=== PATIENT | male | born 1995 | race Caucasian/White ===

== ENCOUNTER 2017-12-21 14:23 | Inpatient (IN) | payer OTHER ==
[~2017-12-21] VITALS: Ht 172.7 cm; Wt 68.0 kg
[2017-12-22 14:30] VITALS: BP 138/65
[2017-12-22] MEDS ORDERED: MAGNESIUM HYDROXIDE 30 ML LIQUID UDC PO PRN (14:30)
[2017-12-22] MEDS ORDERED: ONDANSETRON ODT 4 MG TAB.RAPDIS SL PRN (14:30)
[2017-12-22] MEDS ORDERED: LORAZEPAM 2 MG/1 ML VIAL IM PRN (14:30)
[2017-12-22] MEDS ORDERED: ONDANSETRON 4 MG/2 ML VIAL IM PRN (14:30)
[2017-12-22] MEDS ORDERED: LORAZEPAM 1 MG TABLET PO PRN ×2 (14:30)
[2017-12-22] MEDS ORDERED: DICYCLOMINE HCL 20 MG TABLET PO PRN (14:30)
[2017-12-22] MEDS ORDERED: THIAMINE HCL 200 MG/2 ML VIAL IM ONE (14:30)
[2017-12-22] MEDS ORDERED: NICOTINE 14 MG/24HR PATCH TD PRN (14:30)
[2017-12-22] MEDS ORDERED: LOPERAMIDE HCL 2 MG CAPSULE PO PRN ×2 (14:30)
[2017-12-22] MEDS ORDERED: MAG HYDROX/AL HYDROX/SIMETH 30 ML LIQUID UDC PO PRN (14:30)
[2017-12-22] MEDS ORDERED: MIRALAX 17 GM POWD.PACK PO PRN (14:30)
[2017-12-22] MEDS ORDERED: NICOTINE POLACRILEX 4 MG GUM-PK OF TEN BC PRN (14:30)
[2017-12-22] MEDS ORDERED: IBUPROFEN 400 MG TABLET PO PRN (14:30)
[2017-12-22] MEDS ORDERED: ACETAMINOPHEN 325 MG TABLET PO PRN (14:30)
--- NOTE | 2017-12-22 14:30 | NUR ---
INTAKE ASSESSMENT Received patient in intake. He is AOX4, stable, and ambulatory. Vital signs WNL. Patient reports allergic to sulfa. Patient has seizure history last seizure was in March 2017. Patient did not bring any medications with him from home. Explained unit protocols and patient verbalized understanding. Will admit patient upon admission to third floor.
--- NOTE | 2017-12-22 15:00 | NUR ---
ADMISSION NOTE STATUS-FULL CODE ALLERGY-SULFA HEIGHT-5'8" WEIGHT-150IBS VITAL SIGNS-BP: 138/65, P: 80, R: 16, O2: 96%, T: 98.4, PA: 0/10 PCP-NONE Patient is a 22 year old male admitted on 12/22/17 for ETOH dependence, arrived on the unit at 1500. Patient able to provide UDS during intake. Skin and body check completed. Pt is full code, Regular diet and on fall/seizure precautions. Patient reports PMH of anxiety,heredity spherocytosis, seizure last seizure was in March 2017. Pt refuses flu/pneumonia vaccine. Patient reports smokes 1 pack of cigarettes a day. Patient did not bring any medication with him. Patient reports first using alcohol at age [age] years old, but last 2 years drinking daily 12 pack of beer, last used was on 12/21/17 12 pack beer, Cocaine last 2 years 0.25 GM daily via inhalation last used was 0.25Gm on 12/21/17. Patient also reported using Xanax last 2 years on and off occasionally 0.25 mg to 2 mg last used was 2mg prior to admission 12/22/17. Patient reports achieved 2 weeks of sobriety 2 years ago. Patient reports this is his first time in treatment/detox. Patient reports family history of ETOH abuse and heart disease. Upon assessment, pt is AAOx4 and presents with anxiety, agitation,fatigue. Respirations even and unlabored. Denies SOB or chest pain. Bowel sounds active x 4, abdomen soft. PERRLA. Skin intact, no open wounds noted. Pt denies SI/HI at this time. Patient denies any history of SI/HI. Pt oriented to room and encouraged to notify staff with any concerns. Safety measures in place. Call light within reach, side rails up x 2, bed locked and in low position. Will continue to monitor.
[2017-12-22 15:43] LABS: *AMPHETAMINE, URINE NEGATIVE (NEGATIVE); *BARBITURATE, URINE NEGATIVE (NEGATIVE); *CANNABINOID, URINE POSITIVE (NEGATIVE); *COCCAINE, URINE POSITIVE (NEGATIVE); *OPIATE, URINE NEGATIVE (NEGATIVE); *PHENCYCLIDINE SCREEN,URINE NEGATIVE (NEGATIVE)
[2017-12-22 16:00] VITALS: BP 132/74
[2017-12-22] MEDS: LORAZEPAM 1 MG TABLET PO SCH ×2 (16:33→20:16)
--- NOTE | 2017-12-22 19:08 | NUR ---
END OF SHIFT NOTE Patient is alert oriented x4. 22 year old male admitted for ETOH dependence. Patient has PMH of Anxiety, seizure, and hereditary spherocytosis. Patient cont on 5 days Ativan taper tolerating well. Medications were effective in reducing withdrawal symptoms. Patient did not receive any PRN during shift. Skin intact warm and dry to touch. Last CIWA score was 10. Patient remained compliant with treatment plan and medication regime. Encourage Po fluids as tolerated. All safety measures in place, Call light within reach. Patient endorsed to night nurse in stable condition.
--- NOTE | 2017-12-22 19:10 | NUR ---
Start of Shift Patient Received. Patient is in his room, awake, alert and verbally responsive. Breathing even and non labored. Patient is a 22 year old male admitted today for ETOH Dependence. Patient was started on a 5 day Ativan taper with CIWA noted to be 10. Per endorsement, labs to be rendered. All needs attended to promptly. Will continue plan of care as ordered.
[2017-12-22 20:14] VITALS: BP 148/71
[2017-12-22] MEDS: diphenhydrAMINE 50 MG CAPSULE PO PRN (20:16)
--- NOTE | 2017-12-22 20:20 | NUR ---
PRN Medication Administration Patient is noted verbalizing inability of falling asleep and staying asleep. PRN Benadryl administered with routine medications. Will continue to monitor.
--- NOTE | 2017-12-22 21:20 | NUR ---
PRN Medication Reassessment Patient is noted in bed sleeping. Breathing even and non labored. No signs of restlessness or discomfort noted. PRN Benadryl noted to be effective. Will continue to monitor.
[2017-12-22 23:19] LABS: BASOPHILS # (AUTO) 0.1 K/uL (0.0-8.0); BASOPHILS % (AUTO) 0.8 % (0.0-2.0); EOSINOPHILS # (AUTO) 0.1 K/uL (0.0-0.7); HEMATOCRIT 45.6 % (36.7-47.1); LYMPHOCYTES # (AUTO) 1.5 K/uL (20.0-40.0); LYMPHOCYTES % (AUTO) 18.1 % (20.5-51.5); MEAN CORPUSCULAR VOLUME 96.9 fL (73.0-96.2); MONOCYTES # (AUTO) 0.5 K/uL (2.0-10.0); MONOCYTES % (AUTO) 6.2 % (0.0-11.0); NEUTROPHILS # (AUTO) 5.9 K/uL (1.8-8.9); NEUTROPHILS % (AUTO) 73.9 % (38.5-71.5); PLATELET COUNT (AUTO) 219 K/uL (152-348)
[2017-12-22 23:28] LABS: ETHANOL < 3 MG/DL (0-0)
[2017-12-22 23:29] LABS: ALANINE AMINOTRANSFERASE 35 U/L (16-63); ALKALINE PHOSPHATASE 65 U/L (50-136); AMYLASE 54 U/L (25-115); ASPARTATE AMINOTRANSFERASE 27 U/L (15-37); BILIRUBIN,TOTAL 2.6 mg/dL (0.2-1.0); CARBON DIOXIDE 28 mmol/L (21-32); CHLORIDE 99 mmol/L (98-107); CREATININE 1.1 mg/dL (0.6-1.3); GLUCOSE 122 mg/dL (74-106); MAGNESIUM 2.1 mg/dL (1.8-2.4); POTASSIUM 3.8 mmol/L (3.5-5.1); TOTAL PROTEIN, SERUM 8.2 g/dL (6.4-8.2); UREA NITROGEN, BLOOD 14 mg/dL (7-18)
[2017-12-23] VITALS (7 sets, daily range): BP systolic 112–151; BP diastolic 55–93
[2017-12-23 00:35] LABS: MEAN CORPUSCULAR HEMOGLOBIN 34.7 uug (23.8-33.4)
[2017-12-23 00:36] LABS: MEAN CORPUSCULAR HGB CONC 35 g/dL (32.5-36.3)
--- NOTE | 2017-12-23 07:06 | NUR ---
End of Shift Patient is in bed sleeping. Breathing even and non labored. No signs of restlessness or discomfort noted. Patient is a 22 year old male admitted for ETOH Dependence and continues on a 5 day Ativan taper. Patient received a PRN Benadryl with medication noted to be effective. Last noted CIWA 10. All needs attended to promptly. Will endorse to continue plan of care as ordered.
--- NOTE | 2017-12-23 07:34 | NUR ---
BEGINNING OF SHIFT Patient endorsement report received from table games shift manager nurse, all pertinent information discussed. Patient is a 22 year old male with admitting Dx: ETOH dependence. with substance use of: Cocaine, and xanax. Patient currently with ongoing 5 day Ativan taper as ordered, and is scheduled to begin day 1 of taper. Per table games shift manager patient with last ciwa score of: 10, received PRN: Benadryl. Slept for 8 hours. Fall and seizure precautions observed at all times. Patient received awake, alert and oriented x4, educated regarding plan of care for the day, will continue to monitor closely. safety measures in place.
[2017-12-23] MEDS: FOLIC ACID 1 MG TABLET PO SCH (08:55)
[2017-12-23] MEDS: THIAMINE HCL 100 MG TABLET PO SCH (08:55)
[2017-12-23] MEDS: MULTIVITAMINS,THERAPEUTIC TABLET PO SCH (08:55)
[2017-12-23] MEDS: LORAZEPAM 1 MG TABLET PO SCH ×3 (08:56→21:30)
[2017-12-23] MEDS ORDERED: TUBERCULIN,PURIF.PROT.DERIV. 5 TU/0.1 ML TEST ID ONE (09:00)
--- NOTE | 2017-12-23 11:50 | NUR ---
Therapist prompted client about group times. Client stated he will attend all groups today.
--- NOTE | 2017-12-23 19:00 | NUR ---
END OF SHIFT Patient alert and oriented x4, compliant with plan of care. Patient with admitting Dx: etoh withdrawal. Continues under very close observation for any s/sx of withdrawal. Continues on 5 day Ativan taper as ordered, currently on day 1 of taper. Vital signs monitored closely during shift. During shift patient presented with: tremors, sweats, anxiety, agitation, clammy skin. Also noted with worried facial expression and avoidant eye contact. Patient noted with irritable and anxious facial expression. During shift patient encouraged to develop coping skills and utilization of non pharmacological interventions provided. Encouraged to participate in therapy session. Encouraged diversional activities to alleviate anxiety. 0900 CIWA: 8; 1300 CIWA: 7; 1700 CIWA: 7. Denies any SI/HI. Noted with good appetite during shift, encouraged adequate PO fluid intake as tolerated. All needs met and rendered, call light kept within reach. Fall and seizure precautions observed and in place at all times. Patient endorsed to weight shifter nurse, all pertinent information discussed.
--- NOTE | 2017-12-23 20:00 | NUR ---
Start of Shift Notes Received 22 y/o male alex standing inside his room, px made no complaints, just reported that his anxiety is mild. Px is admitted on 12/22/2017 for ETOH and cocaine dependence. Px is Full Code, on regular diet and px has allergies on Sulfa drugs. Px reported PMHx of anxiety and hereditary spherocytosis. Px is placed on 5 day Ativan taper. Px is on seizure and fall precautions. Bed on lowest position, side rails up 2x, and call light within reach.
[2017-12-23] MEDS: diphenhydrAMINE 50 MG CAPSULE PO PRN (21:30)
--- NOTE | 2017-12-23 21:30 | NUR ---
PRN Benadryl Px requested for Benadryl to help him sleep tonight. Benadryl 50 mg/cap, 1 cap given. We'll continue to monitor.
[2017-12-24] VITALS: BP 128/74
[2017-12-24 04:00] VITALS: BP 125/71
--- NOTE | 2017-12-24 04:00 | NUR ---
CIWA deferred CIWA deferred at 0000 and 0400 due to the px is asleep, to assess if the px is awake per doctors order. We'll continue to monitor.
--- NOTE | 2017-12-24 07:30 | NUR ---
End of Shift Notes During the shift, px didn't complained of anything just requested for Benadryl to help him sleep. Benadryl 50 mg/cap, 1 cap given PO as PRN med and it was effective. Oral intake of 1 L, voided 2x, BM 1x. Slept for 6 hours. We'll continue to monitor. Endorsed to AM shift nurse.
[2017-12-24 07:42] LABS: BASOPHILS % (AUTO) 0.3 % (0.0-2.0); EOSINOPHILS # (AUTO) 0.1 K/uL (0.0-0.7); EOSINOPHILS % (AUTO) 1.1 % (0.0-7.0); HEMATOCRIT 46.1 % (36.7-47.1); HEMOGLOBIN 16.8 g/dL (12.5-16.3); LYMPHOCYTES # (AUTO) 2.1 K/uL (20.0-40.0); LYMPHOCYTES % (AUTO) 30.4 % (20.5-51.5); MEAN CORPUSCULAR HEMOGLOBIN 35.2 uug (23.8-33.4); MEAN CORPUSCULAR HGB CONC 36 g/dL (32.5-36.3); MEAN CORPUSCULAR VOLUME 96.6 fL (73.0-96.2); MONOCYTES # (AUTO) 0.5 K/uL (2.0-10.0); MONOCYTES % (AUTO) 7.4 % (0.0-11.0); NEUTROPHILS # (AUTO) 4.2 K/uL (1.8-8.9); NEUTROPHILS % (AUTO) 60.8 % (38.5-71.5); PLATELET COUNT (AUTO) 200 K/uL (152-348); RED BLOOD CELL COUNT(AUTO) 4.78 MIL/uL (4.06-5.63)
[2017-12-24 08:00] VITALS: BP 111/79
[2017-12-24] MEDS: LORAZEPAM 1 MG TABLET PO SCH ×2 (09:02→15:01)
[2017-12-24] MEDS: FOLIC ACID 1 MG TABLET PO SCH (09:03)
[2017-12-24] MEDS: THIAMINE HCL 100 MG TABLET PO SCH (09:03)
[2017-12-24] MEDS: MULTIVITAMINS,THERAPEUTIC TABLET PO SCH (09:03)
--- NOTE | 2017-12-24 09:36 | NUR ---
START OF SHIFT Received report from retail shift supervisor nurse. Patient is 22 year old male admitted for medically supervised withdrawal from alcohol. Patient is full code with allergy to sulfa. On assessment this AM: CIWA: 3. Denies SOB, chest pain. Patient's vitals signs: WNL. Patient reports anxiety and mild headache. Compliant with AM meds. Offered prn but patient declined at this time. No PRN given. Patient has steady gait. Encouraged to attend group meetings today. Will continue to monitor patient.
[2017-12-24 09:38] LABS: BILIRUBIN,DIRECT 0.3 mg/dL (0.0-0.2); BILIRUBIN,TOTAL 2.5 mg/dL (0.2-1.0); CREATININE 1.1 mg/dL (0.6-1.3); MAGNESIUM 2.6 mg/dL (1.8-2.4)
[2017-12-24 12:00] VITALS: BP 128/77
[2017-12-24 12:09] LABS: HEPATITIS B SURFACE AG Negative (Negative)
--- NOTE | 2017-12-24 13:44 | NUR ---
Therapist prompted client to come to group today. Client agreed to attempt to make it.
[2017-12-24 16:00] VITALS: BP 121/72
--- NOTE | 2017-12-24 19:27 | NUR ---
END OF SHIFT Patient is 22 year old male admitted for medically supervised withdrawal from alcohol. Patient is full code with allergy to sulfa. Most recent CIWA 6. Patient noted to have tremors and anxiety. Patient appears guarded with poor eye contact. Patient minimizes his anxiety and tremors and states he has had his tremors for a long time. Attended group activity this afternoon night shift supervisornight nurse will continue to monitor patient.
[2017-12-24 20:00] VITALS: BP 140/83
--- NOTE | 2017-12-24 20:00 | NUR ---
Start of Shift Notes Received awake standing inside his room. Room appears unkempt, clothes on the floor and some garbage. Px has flushed face and appears anxious, fidgety and restless. Bilateral hand tremors noted. Px asked for a pass to smoke in the patio. Px is on seizure and fall precautions. Bed on lowest position, side rails up 2x, and call light within reach. We'll continue to monitor.
[2017-12-24] MEDS: CLONIDINE HCL 0.1 MG TABLET PO PRN (20:59)
[2017-12-24] MEDS: diphenhydrAMINE 50 MG CAPSULE PO PRN (20:59)
--- NOTE | 2017-12-24 20:59 | NUR ---
PRN meds Px appears very anxious and asked for Benadryl to help him sleep tonight. At 2058, Clonidine 0.1 mg/tab, 1 tab given PO as PRN med and Benadryl 50 mg/cap, 1 cap given PO as PRN med. We'll continue to monitor.
[2017-12-24] MEDS ORDERED: LORAZEPAM 1 MG TABLET PO SCH (21:00)
[2017-12-25] VITALS (8 sets, daily range): BP systolic 104–136; BP diastolic 62–85
--- NOTE | 2017-12-25 04:00 | NUR ---
CIWA deferred CIWA deferred due to px is asleep, to assess if the px is awake per doctor's order. We'll continue to monitor.
[2017-12-25] MEDS: CLONIDINE HCL 0.1 MG TABLET PO PRN ×2 (05:11→19:59)
--- NOTE | 2017-12-25 05:11 | NUR ---
PRN Clonidine Px woke up before 0500 and verbalized "I got broken hours of sleep, I was not like this for the past nights. Can I go smoke?" CIWA 12 at this moment. Clonidine 0.1 mg/tab, 1 tab given PO as PRN med for anxiety. BP= 136/70. We'll continue to monitor.
--- NOTE | 2017-12-25 07:14 | NUR ---
End of Shift Notes Pxs CIWA improved from start of shift CIWA 14 to CIWA 11 at 0000. PRN meds Clonidine 0.1 mg was effective to decrease pxs anxiety. PRN Benadryl 50 mg was not so effective due to the verbalization of px that he had broken hours of sleep last night. CIWA was 12 at 0500. At 0511, another Clonidine 0.1 mg given PO with BP= 136/70. Px had oral intake of 1 L, voided 2x, No BM. Px slept for 5 hours. At 0630, px was asleep on bed. Px is on seizure and fall precautions. Bed on lowest position, side rails up 2x, and call light within reach. Px endorsed to AM shift nurse.
--- NOTE | 2017-12-25 07:30 | NUR ---
START OF SHIFT Pt 22 y/o male admitted for medically supervised withdrawal. Pt received in room on bed with eyes closed resting, but easily arousable to name. Pt alert and oriented to name, place, and time. Perrla. Skin warm and moist to touch. Respirations even and unlabored. Bilateral hand tremors noted. Clothes scattered on the floor in room. Pt appears disheveled. Last reported ciwa=12 @ 0400. It was reported that pt slept for 5 hours last night. Bed on lowest position with side rails x2 up for safety. Call light within reach.
[2017-12-25] MEDS: THIAMINE HCL 100 MG TABLET PO SCH (09:52)
[2017-12-25] MEDS: LORAZEPAM 1 MG TABLET PO SCH ×2 (09:52→21:42)
[2017-12-25] MEDS: MULTIVITAMINS,THERAPEUTIC TABLET PO SCH (09:52)
[2017-12-25] MEDS: FOLIC ACID 1 MG TABLET PO SCH (09:52)
--- NOTE | 2017-12-25 18:59 | NUR ---
END OF SHIFT Pt 22 y/o male admitted for medically supervised withdrawal. Pt appears disheveled. Pt with clothes scattered throughout the floor noted. Pt alert and oriented to name, place, and time. Perrla. Skin warm and moist to touch. Respirations even and unlabored. Bilateral hand tremors noted. CIWA = 9@0800,9@1200, 9@1600. Pt observed mostly in room throughout the morning. Pt attended group activity. Pt was seen by MD today. Pt medication compliant and tolerated well. No ASE noted. Pt is on a 5 day ativan taper is on day 4. Bed on lowest position with side rails x2 up for safety. Call light within reach.
--- NOTE | 2017-12-25 19:45 | NUR ---
Start of Shift Notes Received px awake standing inside his room. Unfolded clothes noticed on top of cabinet and chair. Px appears worried. Px verbalized his anxiety is 4/10 and complained about his bilateral tremors. Px stated "I want to take my Ativan later at night not earlier and if I can have Benadryl too". Px was advised to call anytime if he needs anything. We'll continue to monitor.
[2017-12-25] MEDS: diphenhydrAMINE 50 MG CAPSULE PO PRN (21:42)
--- NOTE | 2017-12-25 21:42 | NUR ---
PRN Meds At 1958, Clonidine 0.1 mg/tab, 1 tab given PO as PRN med for anxiety, BP= 136/85 mmHg. At 2141, Benadryl 50 mg/cap, 1 cap given PO to help px sleep. We'll continue to monitor.
--- NOTE | 2017-12-25 23:00 | NUR ---
Reassessment of anxiety and tremors Px's anxiety and tremors improved after an hour of administration of PRN Clonidine and Ativan 1 mg PO as standing order. CIWA 8. We'll continue to monitor.
[2017-12-26] VITALS: BP 128/83
[2017-12-26 04:00] VITALS: BP 125/79
--- NOTE | 2017-12-26 04:00 | NUR ---
CIWA deferred CIWA deferred at 0000 and 0400 due to the px is asleep, to assess if the px is awake per doctor's order. We'll continue to monitor.
--- NOTE | 2017-12-26 07:24 | NUR ---
End of Shift Notes During the shift, At 1958, Clonidine 0.1 mg/tab, 1 tab given PO as PRN med for anxiety, it was effective. At 2141, Benadryl 50 mg/cap, 1 cap given PO as PRN med, it was effective. Px slept for 6.5 hours. Pxs oral intake is 1 L, voided 3x, No BM. Last CIWA 8. At 0630, px left sleeping on bed. We'll continue to monitor. Px endorsed to AM shift nurse.
--- NOTE | 2017-12-26 07:30 | NUR ---
START OF SHIFT Pt 22 y/o male admitted for medically supervised withdrawal. Pt received in room on bed with eyes closed resting, but easily arousable to name. Pt alert and oriented to name, place, and time. Perrla. Skin warm and moist to touch. Respirations even and unlabored. Bilateral hand tremors noted. Pt appears disheveled. Open empty bottles of drinks noted scattered throughout bed side shelf. Pt is on a 5 day ativan taper and is on day 5. Last reported ciwa=8 @ 0400. It was reported that pt slept for 6 hours last night. Bed on lowest position with side rails x2 up for safety. Call light within reach.
[2017-12-26] MEDS: FOLIC ACID 1 MG TABLET PO SCH (08:26)
[2017-12-26] MEDS: MULTIVITAMINS,THERAPEUTIC TABLET PO SCH (08:26)
[2017-12-26] MEDS: THIAMINE HCL 100 MG TABLET PO SCH (08:26)
[2017-12-26 08:28] VITALS: BP 111/65
[2017-12-26] MEDS ORDERED: LORAZEPAM 1 MG TABLET PO SCH (09:00)
--- NOTE | 2017-12-26 10:36 | NUR ---
THerapist prompted client to come to groups. Client shall consider this.
[2017-12-26] MEDS ORDERED: HYDROXYZINE PAMOATE 25 MG CAPSULE PO PRN (11:30)
--- NOTE | 2017-12-26 12:07 | NUR ---
PRN Pt restless, not able to sit still , and with pressured speech noted. Vistaril po prn per MD order given and tolerated well.
[2017-12-26 12:37] VITALS: BP 124/62
[2017-12-26] MEDS ORDERED: GABAPENTIN 100 MG CAPSULE PO SCH (13:00)
--- NOTE | 2017-12-26 13:07 | NUR ---
CIERRA HERNANDEZ Pt observed in recreational room sitting on couch.
[2017-12-26 16:00] VITALS: BP 136/75
--- NOTE | 2017-12-26 18:35 | NUR ---
END OF SHIFT Pt 22 y/o male admitted for medically supervised withdrawal. Pt appears disheveled with hair uncombed. Pt with clothes scattered throughout the floor. Pt alert and oriented to name, place, and time. Perrla. Skin warm and moist to touch. Respirations even and unlabored. Bilateral hand tremors noted. CIWA = 8@0800,8@1200,and 8@1600. Pt observed mostly in dining room throughout the morning. Pt attended group activity. Pt was seen by MD today. Pt medication compliant and tolerated well. No ASE noted. Pt is on a 5 day ativan taper is on day 5. Bed on lowest position with side rails x2 up for safety. Call light within reach.
--- NOTE | 2017-12-26 19:30 | NUR ---
Start of Shift Notes Received awake standing in his room. Dirty clothes noted on floor and chair. Px stated that his anxiety is mild and he is ready to be D/C tomorrow 12/27/2017. VS as follows BP= 135/79, MD= 75, RR=18, T= 97.7, O2sat= 87%. We'll continue to monitor.
[2017-12-26 20:00] VITALS: BP 135/79
[2017-12-26] MEDS ORDERED: FOLI1TAB16 PO (20:26)
[2017-12-26] MEDS ORDERED: HYDR-3895 PO (20:26)
[2017-12-26] MEDS ORDERED: GABA-532 PO (20:26)
[2017-12-26] MEDS ORDERED: CLON0.1T14 PO (20:26)
[2017-12-26] MEDS ORDERED: NICO4GUM38 BC (20:26)
[2017-12-26] MEDS ORDERED: DIPH50CA37 PO (20:28)
[2017-12-26] MEDS: GABAPENTIN 100 MG CAPSULE PO SCH (21:00)
[2017-12-26] MEDS: diphenhydrAMINE 50 MG CAPSULE PO PRN (22:12)
--- NOTE | 2017-12-26 22:12 | NUR ---
PRN Benadryl Px asked for Benadryl to help him sleep. Benadryl 50 mg/cap, 1 cap given PO as PRN med. We'll continue to monitor.
[2017-12-27] VITALS: BP 129/71
[2017-12-27 04:00] VITALS: BP 131/73
--- NOTE | 2017-12-27 07:14 | NUR ---
End of Shift Notes Px is to be D/C today, 12/27/2017. Benadryl 50 mg/cap, 1 cap given PO as PRN med to help px sleep through the night and it was effective. Px slept for 6 hours. Px oral intake 1000 ml, voided 2x, No BM. Left asleep on bed in left side lying position. Last CIWA 6. Bed on lowest position, side rails up 2x, and call light within reach. We'll continue to monitor. Endorse to AM shift nurse.
[2017-12-27 08:00] VITALS: BP 117/69
--- NOTE | 2017-12-27 08:00 | NUR ---
START OF SHIFT RECEIVED PT IN ROOM, PT STATES HE IS GETTING READY FOR DISCHARGE. PT REPORTS HAVING ANXIETY ABOUT LEAVING DETOX. PT IS TO BE DISCHARGED TODAY. ALL SAFETY MEASURES IN PLACE. WILL CONTINUE TO MONITOR UNTIL DISCHARGE.
[2017-12-27] MEDS: MULTIVITAMINS,THERAPEUTIC TABLET PO SCH (08:26)
[2017-12-27] MEDS: FOLIC ACID 1 MG TABLET PO SCH (08:27)
[2017-12-27] MEDS: THIAMINE HCL 100 MG TABLET PO SCH (08:27)
[2017-12-27] MEDS: GABAPENTIN 100 MG CAPSULE PO SCH (08:27)
--- NOTE | 2017-12-27 09:51 | NUR ---
DISCHARGE NOTE PT IS IN STABLE CONDITION AND IS A/OX4, RESPIRATIONS EVEN AND UNLABORED. D/C INSTRUCTIONS GIVEN AND PT VERBALIZED UNDERSTANDING. D/C PAPERWORK DATED, SIGNED AND COPIED. PT LEFT THE BUILDING AT 0951 ON 12/27/17 WITH ALL BELONGINGS, PRESCRIPTIONS, AND D/C PAPERWORK. PT DID NOT HAVE HOME MEDS. PT BELONGINGS SUCH TOILETRIES HAS BEEN PUT INSIDE OF HIS BAG. PT HAS BEEN PICKED UP BY "[employer]" [employer]IVATE P[employer] AND HAS BEEN TAKEN TO [facility].
== END 2017-12-27 09:51 | disposition other institution (70) | DRG 895 ==
LOC: SRC 12-22 13:59
PROVIDERS: ADMIT Internal Medicine; ATTEND Internal Medicine
PROC: HZ41ZZZ Group Counseling for Substance Abuse Treatment, Behavioral (ICD-10-PCS; principal; 2017-12-22)
PROC: HZ2ZZZZ Detoxification Services for Substance Abuse Treatment (ICD-10-PCS; principal; 2017-12-22)
PROC: HZ31ZZZ Individual Counseling for Substance Abuse Treatment, Behavioral (ICD-10-PCS; 2017-12-25)
DX: F10.230 Alcohol dependence with withdrawal, uncomplicated (principal); R17 Unspecified jaundice; I15.9 Secondary hypertension, unspecified; D58.0 Hereditary spherocytosis; F41.9 Anxiety disorder, unspecified; Y90.0 Blood alcohol level of less than 20 mg/100 ml; Z81.1 Family history of alcohol abuse and dependence; Z83.2 Family history of diseases of the blood and blood-forming organs and certain disorders involving the immune mechanism; Z82.49 Family history of ischemic heart disease and other diseases of the circulatory system; F17.210 Nicotine dependence, cigarettes, uncomplicated; F14.10 Cocaine abuse, uncomplicated; F13.10 Sedative, hypnotic or anxiolytic abuse, uncomplicated; R73.9 Hyperglycemia, unspecified
CPT/HCPCS: 36415; 70030-TC; 80307; 80346; 80349; 80353; 82746; 83010; 83735; 85025; 86580; 86592; 86705; 86803; 86880; 87340; 87806; G0480; J3411; Q0163